=== PATIENT | female | born 1980 | race Asian ===

== ENCOUNTER 2019-10-04 08:35 | Emergency (ER) | payer OTHER ==
[~2019-10-04] VITALS: Ht 170.2 cm; Wt 86.4 kg
[2019-10-04] MEDS ORDERED: TRAZ-252 PO (08:38)
[2019-10-04] MEDS ORDERED: TOPI25 PO (08:38)
[2019-10-04] MEDS ORDERED: BUPIVACAINE HCL/PF 0.25% 10 ML VIAL INJ ONE (09:15)
[2019-10-04] MEDS ORDERED: ACETAMINOPHEN 500 MG TABLET PO ONE (11:00)
[2019-10-04] MEDS ORDERED: BACITRACIN 0.9 GM PACKET OINTMENT TP ONE (11:00)
[2019-10-04 11:16] VITALS: BP 145/85
== END 2019-10-04 11:16 | disposition home or self-care (01) ==
LOC: EMS 08:48
DX: S61.411A Laceration without foreign body of right hand, initial encounter (principal); S61.211A Laceration without foreign body of left index finger without damage to nail, initial encounter; F41.9 Anxiety disorder, unspecified; F32.9 Major depressive disorder, single episode, unspecified; W25.XXXA Contact with sharp glass, initial encounter; Y93.89 Activity, other specified; Y92.89 Other specified places as the place of occurrence of the external cause; Y99.8 Other external cause status
CPT/HCPCS: 12002; 99283; J3490